=== PATIENT | male | born 1930 | race Caucasian/White ===

== ENCOUNTER 2016-02-19 18:48 | Observation (INO) | payer MEDICARE ==
--- NOTE | 2016-02-19 19:08 | EDPRACDOC ---
<Bianca Meeks - Last Filed: 02/19/16 20:50> - General Information Information Source: Customer Service Clerk - History of Present Illness Onset: today HPI: PT BROUGHT BY EMS FROM HOME FOR AMS AND BLOOD IN URINE CATHETER. Pt cannot answer clearly to questions. Degree of change or sign/sx are unknown. There is growth of some organism in the catheter line. Symptoms Currently: Reports: Still Present Prehospital: Reports: Customer Service Clerk <Juaquin Santiago - Last Filed: 02/20/16 04:08> - General Information Chief Complaint: Altered Mental Status Stated Complaint: AMS,UTI Time Seen by Provider: 02/19/16 19:01 Home Medications: Home Medications Aspirin (OrangeEnteric Coated) [Ecotrin] 325 mg PO DAILY 12/16/13 Acetaminophen Ex Str Tablet [TYLENOL EXTRA STRENGTH Tablet] 500 mg PO QID Cyanocobalamin (Vitamin B-12) [Vitamin B-12 (cyanocobalamin)] 2,000 mcg SL DAILY 05/15/15 Ferrous Sulfate [Iron] 325 mg PO DAILY 05/15/15 Furosemide [Lasix] 40 mg PO DAILY 05/15/15 Tamsulosin HCl [Flomax] 0.4 mg PO QHS 05/15/15 POTASSIUM CHLORIDE Tablet [K-DUR 20 mEq Tablet*] 40 meq PO DAILY@1200 #60 tab.er.prt 05/18/15 Multivitamin [One Daily] 1 tab PO DAILY 06/06/15 Levothyroxine [Synthroid, Levoxyl] 100 mcg PO DAILY 12/04/15 Lactobacillus Combination No.4 [Probiotic] 1 cap PO DAILY #30 capsule 12/09/15 Hydrocodone Bit/Acetaminophen [[place] 5-325 Tablet] 1 tab PO Q6H PRN 02/19/16 Allergies/Adverse Reactions: Allergies Allergy/AdvReac Type Severity Reaction Status Date / Time codeine Allergy Nausea/Vomi Verified 08/07/15 18:23 ting oxycodone HCl [From Tylox] Allergy Facial Verified 08/07/15 18:23 Flusing - Treatment Prior to ED Arrival Reported Medications/Treatment [employer] [facility] Treatment BLS <Bianca Meeks - Last Filed: 02/19/16 20:50> - Treatment Prior to ED Arrival Reported Medications/Treatment [employer] [facility] Treatment BLS <Juaquin Santiago - Last Filed: 02/20/16 04:08> ED Past Medical History - History Reviewed Yes Nurses notes reviewed and agree except as marked - Patient Medical History Cardiac History: Reports: Atrial Fibrillation (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 EF 50-55% June 2013.), Heart Attack, Cardiac Catheterization (2012), CABG, Hypercholesterolemia Respiratory History: Reports: COPD (patient denies). Denies: Pneumonia GI/ History: Reports: Renal Disease (Mild renal insufficiency in the past), Urinary Tract Infection, Ulcer Musculoskeletal History: Reports: Arthritis, Osteoarthritis Psychological History: Denies: Depression, Substance Use Disorder Systemic History: Reports: Anemia, Hypothyroidism. Denies: Cancer Surgical History: Reports: Cholecystectomy, CABG, Cardiac Catheterization (2012) , Hernia Surgery, Tonsillectomy/Adnoidectomy - Family Medical History Reports: Hypertension (brother, mother, father), Diabetes (father), Cancer ( brother), Cardiac Disorders (mother father) - Social Medical History Smoking Status: Current status unknown Social History: Denies: Substance Use Disorder <Juaquin Santiago - Last Filed: 02/20/16 04:08> EDM Review of Systems - Review of Systems ROS Negative Except as Marked: Yes All systems reviewed and were negative except as marked Genitourinary: Other (growth in cath tube) <Juaquin Santiago - Last Filed: 02/20/16 04:08> - Physical Exam Last recorded Vital Signs: Last Vital Signs Temp 98.3 F 02/19/16 18:57 Pulse 89 02/19/16 18:57 Resp 18 02/19/16 18:57 BP 133/74 02/19/16 18:57 Pulse Ox 92 02/19/16 18:57 Oxygen Pulse Oxygen Saturation 92 O2 Device Oxygen Flow Rate Fraction of Inspired Oxygen ( FIO2) <Bianca Meeks - Last Filed: 02/19/16 20:50> - Physical Exam Constitutional: Alert Oriented to: Person, Place Last recorded Vital Signs: Last Vital Signs Temp 98.3 F 02/19/16 18:57 Pulse 89 02/19/16 18:57 Resp 18 02/19/16 18:57 BP 133/74 02/19/16 18:57 Pulse Ox 92 02/19/16 18:57 Oxygen Pulse Oxygen Saturation 92 O2 Device Oxygen Flow Rate Fraction of Inspired Oxygen ( FIO2) - HEENT Head: Normal Eye Exam: negative: Conjunctival Injection, Scleral Icterus Oropharynx: negative: Drooling Nose: No Symptoms Reported Neck: Normal - Respiratory/Cardiovascular Respiratory: Normal - CTA Cardiovascular: Systolic murmur - GI Tenderness: Non tender - Musculoskeletal Extremities: Normal - Integumentary Skin: Normal, Dry <Juaquin Santiago - Last Filed: 02/20/16 04:08> - Results 02/19/16 19:30 02/19/16 19:30 WBC 7.3 xk/uL (3.8-10.8) 02/19/16 19:30 RBC 3.81 xM/uL (4.70-6.10) L 02/19/16 19:30 Hgb 12.3 g/dL (14.0-18.0) L 02/19/16 19:30 Hct 37.0 % (42-52) L 02/19/16 19:30 MCV 97 fL (80-94) H 02/19/16 19:30 MCH 32.2 pg (27-32) H 02/19/16 19:30 MCHC 33.2 g/dl (33-36) 02/19/16 19:30 RDW 16.5 % (11.5-14.5) H 02/19/16 19:30 Plt Count 191 xk/uL (130-400) 02/19/16 19:30 MPV 6.8 fL (7.4-10.4) L 02/19/16 19:30 Neut % (Auto) 77.7 % (45-76) H 02/19/16 19:30 Lymph % (Auto) 14.3 % (17-44) L 02/19/16 19:30 [place]k % (Auto) 4.5 % (3-10) 02/19/16 19:30 Eos % (Auto) 2.9 % (0-5) 02/19/16 19:30 Baso % (Auto) 0.6 % (0-2) 02/19/16 19:30 Absolute Neuts (auto) 5.62 xk/uL (1.7-8.2) 02/19/16 19:30 Absolute Lymphs (auto) 1.02 xk/uL (0.65-4.75) 02/19/16 19:30 PT 11.7 SEC (9.2-11.2) H 02/19/16 19:30 INR 1.1 02/19/16 19:30 APTT 25.6 SEC (22-35) 02/19/16 19:30 Sodium 148 mEq/L (137-146) H 02/19/16 19:30 Potassium 3.2 mEq/L (3.5-5.1) L 02/19/16 19:30 Chloride 110 mEq/L (98-107) H 02/19/16 19:30 Carbon Dioxide 24 mMOL/L (22-33) 02/19/16 19:30 Anion Gap 17 mEq/L (8-16) H 02/19/16 19:30 BUN 19 MG/DL (9-20) 02/19/16 19:30 Creatinine 0.80 MG/DL (0.66-1.25) 02/19/16 19:30 Estimated GFR (MDRD) > 60 mL/min (>=60) 02/19/16 19:30 Glucose 107 MG/DL (70-99) H 02/19/16 19:30 Calculated Osmolality 286 MOs/Kg (270-290) 02/19/16 19:30 Lactic Acid 1.3 mEq/L (0.7-2.1) 02/19/16 19:30 Calcium 8.8 MG/DL (8.4-10.2) 02/19/16 19:30 Corrected Calcium 9.3 MG/DL (8.4-10.2) 02/19/16 19:30 Total Bilirubin 2.1 MG/DL (0.2-1.3) H 02/19/16 19:30 AST 25 IU/L (17-59) 02/19/16 19:30 ALT 23 IU/L (21-72) 02/19/16 19:30 Alkaline Phosphatase 95 IU/L (50-160) 02/19/16 19:30 Troponin I 0.03 ng/mL (<.04) 02/19/16 19:30 Total Protein 7.3 G/DL (6.3-8.2) 02/19/16 19:30 Albumin 3.5 G/DL (3.5-5.0) 02/19/16 19:30 Urine Color Maria T 02/19/16 19:55 Urine Clarity Cldy 02/19/16 19:55 Urine pH 8.0 (5.0-8.0) 02/19/16 19:55 Ur Specific [place] 1.005 (1.003-1.035) 02/19/16 19:55 Urine Protein 3+ (NEG/TRACE) H 02/19/16 19:55 Urine Glucose (UA) Neg (NEGATIVE) 02/19/16 19:55 Urine Ketones 2+ (NEGATIVE) H 02/19/16 19:55 Urine Occult Blood 3+ (NEG/TRACE) H 02/19/16 19:55 Urine Nitrite Pos (NEGATIVE) H 02/19/16 19:55 Urine Bilirubin Neg (NEGATIVE) 02/19/16 19:55 Urine Urobilinogen 2 MG/DL (0-1) H 02/19/16 19:55 Ur Leukocyte Esterase 2+ (NEGATIVE) H 02/19/16 19:55 Urine RBC Tntc (0-2) H 02/19/16 19:55 Urine WBC Tntc (0-2) H 02/19/16 19:55 Urine WBC Clumps Present (NONE) H 02/19/16 19:55 Urine Bacteria 4+ (NEG/FEW) H 02/19/16 19:55 Lab Results 02/19/16 02/19/16 02/19/16 19:55 19:30 19:30 WBC RBC Hgb Hct MCV MCH MCHC RDW Plt Count MPV Neut % (Auto) Lymph % (Auto) [place] % (Auto) Eos % (Auto) Baso % (Auto) Absolute Neuts (auto) Absolute Lymphs (auto) PT 11.7 H INR 1.1 APTT 25.6 Sodium Potassium Chloride Carbon Dioxide Anion Gap BUN Creatinine Estimated GFR (MDRD) Glucose Calculated Osmolality Lactic Acid 1.3 Calcium Corrected Calcium Total Bilirubin AST ALT Alkaline Phosphatase Troponin I Total Protein Albumin Urine Color Maria T Urine Clarity Cldy Urine pH 8.0 Ur Specific [place] 1.005 Urine Protein 3+ H Urine Glucose (UA) Neg Urine Ketones 2+ H Urine Occult Blood 3+ H Urine Nitrite Pos H Urine Bilirubin Neg Urine Urobilinogen 2 H Ur Leukocyte Esterase 2+ H Urine RBC Tntc H Urine WBC Tntc H Urine WBC Clumps Present H Urine Bacteria 4+ H 02/19/16 02/19/16 19:30 19:30 WBC 7.3 RBC 3.81 L Hgb 12.3 L Hct 37.0 L MCV 97 H MCH 32.2 H MCHC 33.2 RDW 16.5 H Plt Count 191 MPV 6.8 L Neut % (Auto) 77.7 H Lymph % (Auto) 14.3 L [place] % (Auto) 4.5 Eos % (Auto) 2.9 Baso % (Auto) 0.6 Absolute Neuts (auto) 5.62 Absolute Lymphs (auto) 1.02 PT INR APTT Sodium 148 H Potassium 3.2 L Chloride 110 H Carbon Dioxide 24 Anion Gap 17 H BUN 19 Creatinine 0.80 Estimated GFR (MDRD) > 60 Glucose 107 H Calculated Osmolality 286 Lactic Acid Calcium 8.8 Corrected Calcium 9.3 Total Bilirubin 2.1 H AST 25 ALT 23 Alkaline Phosphatase 95 Troponin I 0.03 Total Protein 7.3 Albumin 3.5 Urine Color Urine Clarity Urine pH Ur Specific [place] Urine Protein Urine Glucose (UA) Urine Ketones Urine Occult Blood Urine Nitrite Urine Bilirubin Urine Urobilinogen Ur Leukocyte Esterase Urine RBC Urine WBC Urine WBC Clumps Urine Bacteria <Bianca Meeks - Last Filed: 02/19/16 20:50> - Results 02/20/16 02:20 02/20/16 02:20 - EKG EKG #1 EKG Time: 19:30 -: Yes EKG interpreted by me Rate: bpm: 84 Rhythm: Afib ST: Nonsp Comparison: 12/04/15 (no significant change) - Diagnostic Imaging Chest Image interpreted by: Radiologist EXAM: PORTABLE CHEST 1 VIEW COMPARISON: Chest radiograph performed 01/05/2016 FINDINGS: The lungs are mildly hypoexpanded. Mild vascular congestion is noted. Mild right midlung opacity could reflect mild pneumonia. No pleural effusion or pneumothorax is seen. The cardiomediastinal silhouette is borderline normal in size. The patient is status post median sternotomy. No acute osseous abnormalities are identified. IMPRESSION: Lungs mildly hypoexpanded. Mild vascular congestion noted. Mild right midlung opacity could reflect mild pneumonia. Electronically Signed By: Prakash Ventura M.D. On: 02/19/2016 19:44 <Juaquin Santiago - Last Filed: 02/20/16 04:08> - Departure Yes I personally saw and evaluated the patient. Education/Counseling Given To: Patient Education/Counseling Given Regarding: Diagnosis, Treatment Decision to Admit Time: 20:51 Decision to admit date: 02/19/16 Decision to admit: from ED - Physician Consulted Hospitalist Provider Called: Leila Diamond <Bianca Meeks - Last Filed: 02/19/16 20:50> - Departure Disposition: Admit IP To This Hospital <Juaquin Santiago - Last Filed: 02/20/16 04:08> - Departure Condition: Stable Final Diagnosis: UTI (urinary tract infection) Qualifiers: Urinary tract infection type: catheter-associated UTI Indwelling urinary catheter type: indwelling urethral catheter Encounter type: initial encounter Qualified Code(s): T83.511A - Infection and inflammatory reaction due to indwelling urethral catheter, initial encounter; N39.0 - Urinary tract infection , site not specified Sepsis Qualifiers: Sepsis type: sepsis due to unspecified organism Qualified Code(s): A41.9 - Sepsis, unspecified organism Pneumonia Qualifiers: Pneumonia type: due to unspecified organism Laterality: right Lung location: unspecified part of lung Qualified Code(s): J18.9 - Pneumonia, unspecified organism
[2016-02-19] MEDS ORDERED: NS 1,000 ML IV ONE (19:28)
[2016-02-19 19:41] LABS: AUTOMATED BASOPHIL 0.6 % (0-2); AUTOMATED EOSINOPHIL 2.9 % (0-5); AUTOMATED LYMPH 14.3 % (17-44); AUTOMATED MONOCYTE 4.5 % (3-10); AUTOMATED NEUTROPHIL 77.7 % (45-76); MPV 6.8 fL (7.4-10.4)
--- NOTE | 2016-02-19 19:46 | DIRPT ---
CLINICAL DATA: Acute onset of altered mental status and hematuria. Initial encounter. EXAM: PORTABLE CHEST 1 VIEW COMPARISON: Chest radiograph performed 01/05/2016 FINDINGS: The lungs are mildly hypoexpanded. Mild vascular congestion is noted. Mild right midlung opacity could reflect mild pneumonia. No pleural effusion or pneumothorax is seen. The cardiomediastinal silhouette is borderline normal in size. The patient is status post median sternotomy. No acute osseous abnormalities are identified. IMPRESSION: Lungs mildly hypoexpanded. Mild vascular congestion noted. Mild right midlung opacity could reflect mild pneumonia. Electronically Signed By: Prakash Ventura M.D. On: 02/19/2016 19:44
[2016-02-19 19:54] LABS: BLOOD UREA NITROGEN 19 MG/DL (9-20); CALC CORRECTED 9.3 MG/DL (8.4-10.2); CALCIUM 8.8 MG/DL (8.4-10.2); CALCULATED OSMOLALITY 286 MOs/Kg (270-290); CHLORIDE 110 mEq/L (98-107); GLUCOSE 107 MG/DL (70-99); PARTIAL THROMB. TIME 25.6 SEC (22-35); PT-INR 1.1; SODIUM LEVEL 148 mEq/L (137-146); TOTAL PROTEIN 7.3 G/DL (6.3-8.2)
[2016-02-19 20:37] LABS: LEUKOCYTES/URINE 2+ (NEGATIVE); RBC/URINE TNTC (0-2); URINE OCCULT BLOOD 3+ (NEG/TRACE); WBC/URINE TNTC (0-2)
[2016-02-19 20:40] LABS: NITRITE/URINE POS (NEGATIVE)
[2016-02-19] MEDS ORDERED: Levofloxacin 750 mg/150 ml D5W 750 MG/150 ML RTU IV ONE (20:44)
[2016-02-19] MEDS ORDERED: Aluminum;Magnesium;Simethicone 30 ML UDC PO PRN (21:59)
[2016-02-19] MEDS ORDERED: PROMETHAZINE 25 MG/ML VIAL IV PRN (21:59)
[2016-02-19] MEDS ORDERED: SODIUM CHLORIDE 0.9% 3 ML FLUSH FLUSH PRN (21:59)
[2016-02-19] MEDS ORDERED: ACETAMINOPHEN 325 MG/TAB TABLET PO PRN (21:59)
[2016-02-19] MEDS ORDERED: ACETAMINOPHEN 650 MG SUPP PR PRN (21:59)
[2016-02-19] MEDS ORDERED: MAGNESIUM HYDROXIDE 30 ML BOTTLE PO PRN (21:59)
[2016-02-19] MEDS ORDERED: Vancomycin HCl 0 MG in D5W 500 ML IV SCH (22:00)
--- NOTE | 2016-02-19 22:08 | HISTPHYS ---
- History of Present Illness PT BROUGHT BY EMS FROM HOME FOR AMS AND BLOOD IN URINE CATHETER. Pt cannot answer clearly to questions. Degree of change or sign/sx are unknown. There is growth of some organism in the catheter line. 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 He has an indwelling Richard catheter that when it was evaluated by nursing staff was found to have something that appeared to be mold be on the inside of it. There was some kind of organism growing on the catheter. 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 He has routinely refused home health and she is having great difficulty trying to get the catheter changed in other things the last time his catheter was changed was the beginning of January 2016. She and her daughter are trying to meet the patient's wishes however at this point a reassessment of his needs may need to occur. 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 EF 50-55% June 2013.), Heart Attack, Cardiac Catheterization (2012), CABG, Hypercholesterolemia Respiratory History: Reports: COPD (patient denies). Denies: Pneumonia GI/ History: Reports: Renal Disease (Mild renal insufficiency in the past), Urinary Tract Infection, Ulcer Musculoskeletal History: Reports: Arthritis, Osteoarthritis Systemic History: Reports: Anemia, Hypothyroidism. Denies: Cancer Psychological History: Denies: Depression, Substance Use Disorder - Surgical History Reports: Cholecystectomy, CABG, Cardiac Catheterization (2012), Hernia Surgery, Tonsillectomy/Adnoidectomy - Medictions/Allergies Allergies codeine Allergy (Verified 08/07/15 18:23) Nausea/Vomiting oxycodone HCl [From Tylox] Allergy (Verified 08/07/15 18:23) Facial Flusing Current Medication List: Reviewed Home Medications Aspirin (OrangeEnteric Coated) [Ecotrin] 325 mg PO DAILY 12/16/13 Acetaminophen Ex Str Tablet [TYLENOL EXTRA STRENGTH Tablet] 500 mg PO QID Cyanocobalamin (Vitamin B-12) [Vitamin B-12 (cyanocobalamin)] 2,000 mcg SL DAILY 05/15/15 Ferrous Sulfate [Iron] 325 mg PO DAILY 05/15/15 Furosemide [Lasix] 40 mg PO DAILY 05/15/15 Tamsulosin HCl [Flomax] 0.4 mg PO QHS 05/15/15 POTASSIUM CHLORIDE Tablet [K-DUR 20 mEq Tablet*] 40 meq PO DAILY@1200 #60 tab.er.prt 05/18/15 Multivitamin [One Daily] 1 tab PO DAILY 06/06/15 Levothyroxine [Synthroid, Levoxyl] 100 mcg PO DAILY 12/04/15 Omeprazole [Prilosec] 20 mg PO DAILY 12/04/15 Amoxicillin [Amoxil] 500 mg PO TID #20 capsule 12/09/15 LIDOCAINE 5% Patch [Lidoderm 5% Patch] 3 pat TOP DAILY #30 patch 12/09/15 Lactobacillus Combination No.4 [Probiotic] 1 cap PO DAILY #30 capsule 12/09/15 Trimethoprim-Sulfamethoxazole [Septra DS] 2 tab PO BID #30 tablet 12/09/15 Hydrocodone Bit/Acetaminophen [[place] 5-325 Tablet] 1 tab PO Q6H PRN 02/19/16 Unobtainable 0 mg PO .SEE COMMENTS 02/19/16 - Family History Reports: Hypertension (brother, mother, father), Diabetes (father), Cancer ( brother), Cardiac Disorders (mother father) - Social History Travel Outside of [place] in the Last 3 Months?: No Lives: with Spouse Smoking Status: Never smoker Social History: Denies: Alcohol Use, Substance Use Disorder - Review of Systems Constitutional: No Symptoms Reported (No Fever, chills, wt loss/gain, diaphoresis,fatigue/malaise.) Eyes: No Symptoms Reported (No blurry vision, visual changes, eye pain, or eye redness.) Ears: No Symptoms Reported (No ear pain or discharge) Nose: No Symptoms Reported (No nasal discharge/congestion or bleeding) Mouth: No Symptoms Reported (No oropharyngeal lesions or erythema) Throat/Neck: No Symptoms Reported (No throat pain or swelling.No oropharyngeal lesions or erythema.) Respiratory: No Symptoms Reported (No cough, wheezing, or shortness of breath.) Cardiovascular: No Symptoms Reported (No chest pain or palpitations.) Gastrointestinal: No Symptoms Reported (No abdominal pain, nausea, vomiting, diarrhea, constipation, or bloody stool.) Genitourinary: No Symptoms Reported (No dysuria or hematuria.) Neurological: Speech Difficulty, Mood Changes, Memory Changes, Changes in Orientation Musculoskeletal:: No Symptoms Reported Integumentary: No Symptoms Reported (no rashes or lesions) Allergic/Immunologic: No Symptoms Reported (no rashes or lesions) Hematologic: No Symptoms Reported (No chronic anemia, bleeding, or easy bruising.), Other (Lymphatics- no lymph node swelling or pain.) Endocrine: No Symptoms Reported Psychiatric: No Symptoms Reported (Fully oriented, with normal and appropriate affect.) - Physical Exam Vital Signs: Initial Vitals Temperature 98.3 F 02/19/16 18:57 Pulse Rate 89 02/19/16 18:57 Respiratory Rate 18 02/19/16 18:57 Blood Pressure 133/74 02/19/16 18:57 Pulse Oxygen Saturation 92 02/19/16 18:57 Constitutional: Agitated, Confused, Writhing Oriented to: Time, Person, Place - HEENT Head: Normal (normocephalic, atraumatic.), Other (No cervical lymphadenopathy. No supraclavicular lymphadenopathy. Neck: No palpable mass, supple , trachea midline.) Eye: Normal (pupils equal, reactive to light, and round; EOMI, Sclera white) ENT EAC: Normal (No oropharyngeal lesions or erythema. Mucous membranes are dry. ) TMJ: Normal Nose: No Symptoms Reported (septum midline, Nares patent, without discharge or bleeding.) Respiratory: Normal - CTA (Clear to auscultation bilaterally. No wheezing, rales , rhonchi. Chest wall movements are symmetric. No use of accessory muscles to breathe.) Cardiovascular: Normal (RRR , Normal S1, S2. No murmurs, rubs, or gallops. PMI non-displaced. Carotids: no carotid bruits. No bradycardia or tachycardia. DP pulses 2+ bilaterally.) - GI Auscultation: Normal (normal active sounds) Palpation: Normal (Soft,non distended,nontender. No hepatosplenomegaly.) Tenderness: Non tender (No rebound or guarding) Crook's Sign: Negative - Musculoskeletal Back: Normal (Non-Tender) Extremities: Normal (Normal tone, DP pulses 2+ bilaterally, No cyanosis or edema bilaterally, FROM bilaterally.) - Integumentary Skin: Normal (Clean, dry, and intact. No rashes. No lesions.) Lymphatics: Normal (No cervical lymphadenopathy. No supraclavicular lymphadenopathy.) - Neurologic Memory Impaired: Short-term, Long-term Motor Function: Abnormal Cranial Nerve: 4, Unable to Test Cerebellar: Unable to Test Mood Description: Normal, Anxious, Agitated Thought: Delusions. negative: Coherent Perception: Normal - Focused CV Perfusion Exam Vital Signs: Last Vital Signs Temp 98.3 F 02/19/16 18:57 Pulse 89 02/19/16 18:57 Resp 18 02/19/16 18:57 BP 133/74 02/19/16 18:57 Pulse Ox 92 02/19/16 18:57 - Lab Results Laboratory Results - last 24 hr 02/19/16 02/19/16 02/19/16 19:30 19:30 19:30 WBC 7.3 RBC 3.81 L Hgb 12.3 L Hct 37.0 L MCV 97 H MCH 32.2 H MCHC 33.2 RDW 16.5 H Plt Count 191 MPV 6.8 L Neut % (Auto) 77.7 H Lymph % (Auto) 14.3 L [place] % (Auto) 4.5 Eos % (Auto) 2.9 Baso % (Auto) 0.6 Absolute Neuts (auto) 5.62 Absolute Lymphs (auto) 1.02 PT 11.7 H INR 1.1 APTT 25.6 Sodium 148 H Potassium 3.2 L Chloride 110 H Carbon Dioxide 24 Anion Gap 17 H BUN 19 Creatinine 0.80 Estimated GFR (MDRD) > 60 Glucose 107 H Calculated Osmolality 286 Lactic Acid Calcium 8.8 Corrected Calcium 9.3 Total Bilirubin 2.1 H AST 25 ALT 23 Alkaline Phosphatase 95 Troponin I 0.03 Total Protein 7.3 Albumin 3.5 Urine Color Urine Clarity Urine pH Ur Specific [place] Urine Protein Urine Glucose (UA) Urine Ketones Urine Occult Blood Urine Nitrite Urine Bilirubin Urine Urobilinogen Ur Leukocyte Esterase Urine RBC Urine WBC Urine WBC Clumps Urine Bacteria 02/19/16 02/19/16 19:30 19:55 WBC RBC Hgb Hct MCV MCH MCHC RDW Plt Count MPV Neut % (Auto) Lymph % (Auto) [place] % (Auto) Eos % (Auto) Baso % (Auto) Absolute Neuts (auto) Absolute Lymphs (auto) PT INR APTT Sodium Potassium Chloride Carbon Dioxide Anion Gap BUN Creatinine Estimated GFR (MDRD) Glucose Calculated Osmolality Lactic Acid 1.3 Calcium Corrected Calcium Total Bilirubin AST ALT Alkaline Phosphatase Troponin I Total Protein Albumin Urine Color Maria T Urine Clarity Cldy Urine pH 8.0 Ur Specific [place] 1.005 Urine Protein 3+ H Urine Glucose (UA) Neg Urine Ketones 2+ H Urine Occult Blood 3+ H Urine Nitrite Pos H Urine Bilirubin Neg Urine Urobilinogen 2 H Ur Leukocyte Esterase 2+ H Urine RBC Tntc H Urine WBC Tntc H Urine WBC Clumps Present H Urine Bacteria 4+ H - Diagnostic Findings PORTABLE CHEST 1 VIEW COMPARISON: Chest radiograph performed 01/05/2016 FINDINGS: The lungs are mildly hypoexpanded. Mild vascular congestion is noted. Mild right midlung opacity could reflect mild pneumonia. No pleural effusion or pneumothorax is seen. The cardiomediastinal silhouette is borderline normal in size. The patient is status post median sternotomy. No acute osseous abnormalities are identified. IMPRESSION: Lungs mildly hypoexpanded. Mild vascular congestion noted. Mild right midlung opacity could reflect mild pneumonia. Electronically Signed By: Prakash Ventura M.D. On: 02/19/2016 19:44 - Assessment (1) Acute metabolic encephalopathy G93.41 - METABOLIC ENCEPHALOPATHY Acute Present on Admission: Yes states that at baseline patient is alert awake. Currently he is agitated, confused and not making any sense. (2) UTI (urinary tract infection) N39.0 - URINARY TRACT INFECTION, SITE NOT SPECIFIED Acute Qualifiers: Urinary tract infection type: catheter-associated UTI Indwelling urinary catheter type: indwelling urethral catheter Encounter type: initial encounter Qualified Code(s): T83.511A - Infection and inflammatory reaction due to indwelling urethral catheter, initial encounter; N39.0 - Urinary tract infection , site not specified Likely urinary tract infection given condition of the catheter. Await further evaluation and management. Continue with vancomycin and cefepime. (3) Pneumonia J18.9 - PNEUMONIA, UNSPECIFIED ORGANISM Suspected Qualifiers: Pneumonia type: due to unspecified organism Laterality: right Lung location: middle lobe of lung Qualified Code(s): J18.1 - Lobar pneumonia, unspecified organism Patient started on cefepime and vancomycin. I highly doubt pneumonia given his presentation and catheter issues. Will recheck chest x-ray in 24-48 hours to re -evaluate. At this point he is on vancomycin and cefepime and should cover him. (4) Hypokalemia E87.6 - HYPOKALEMIA Acute Present on Admission: Yes Replete IV and p.o. (5) Physical debility R53.81 - OTHER MALAISE Chronic Assist with ADLs and with transfers, continue falls and safety precautions. PT/OT to evaluate patient. Patient is nonambulatory and will need intensive physical therapy. (6) Dehydration E86.0 - DEHYDRATION Acute Present on Admission: Yes IV fluids and monitor labs and blood pressures (7) Adult failure to thrive R62.7 - ADULT FAILURE TO THRIVE Acute Present on Admission: Yes Patient last weight 107 lb. - Plan Admit, assistance with all ADLs, IV antibiotics for urinary tract infection. Patient on strong broad-spectrum antibiotics which should cover pneumonia as well if that is present. Case Care Discussed with: Patient, Family, Nursing Staff Total Time: 65 minutes Critical Care: No Couseling Time (>50% in counseling/coordination): No
[2016-02-19] MEDS ORDERED: Vaccine Screening Complete SCH (23:00)
[2016-02-19] MEDS: ENOXAPARIN 40 MG/0.4 ML PFS SQ SCH (23:02)
[2016-02-19] MEDS: NS 1,000 ML IV SCH (23:02)
[2016-02-19] MEDS: CEFEPIME HYDROCHLORIDE 1 GM in D5W 100 ML IV SCH (23:02)
[2016-02-20] MEDS: NS 1,000 ML IV SCH ×5 (03:04→23:48)
[2016-02-20 03:33] LABS: AUTOMATED BASOPHIL 0.3 % (0-2); AUTOMATED EOSINOPHIL 2.9 % (0-5); AUTOMATED LYMPH 17.6 % (17-44); AUTOMATED MONOCYTE 5.2 % (3-10); MPV 7.2 fL (7.4-10.4)
[2016-02-20 03:38] LABS: BLOOD UREA NITROGEN 20 MG/DL (9-20); CALC CORRECTED 9.5 MG/DL (8.4-10.2); CALCIUM 8.6 MG/DL (8.4-10.2); CALCULATED OSMOLALITY 285 MOs/Kg (270-290); CHLORIDE 109 mEq/L (98-107); GLUCOSE 122 MG/DL (70-99); SODIUM LEVEL 146 mEq/L (137-146); TOTAL PROTEIN 6.4 G/DL (6.3-8.2)
[2016-02-20] MEDS: SODIUM CHLORIDE 0.9% 3 ML FLUSH FLUSH SCH ×2 (04:38→17:48)
[2016-02-20] MEDS ORDERED: LACTOBACILLUS COMBINATION NO 4 PO SCH (09:00)
[2016-02-20] MEDS ORDERED: Non-Formulary Medication ITEM (Multivitamin [One Daily] 1 TAB) PO SCH (09:00)
[2016-02-20] MEDS ORDERED: Non-Formulary Medication ITEM (Cyanocobalamin (Vitamin B-12) [Vitamin B-12 (Cyanocobalam SL SCH (09:00)
[2016-02-20] MEDS ORDERED: FUROSEMIDE 80 MG TAB PO SCH (09:00)
[2016-02-20] MEDS ORDERED: Non-Formulary Medication ITEM (Ferrous Sulfate [Iron] 325 MG) PO SCH (09:00)
[2016-02-20] MEDS: FUROSEMIDE 40 MG TAB PO SCH (10:28)
[2016-02-20] MEDS: CEFEPIME HYDROCHLORIDE 1 GM in D5W 100 ML IV SCH (10:28)
[2016-02-20] MEDS: LEVOTHYROXINE 100 MCG (0.1 MG) TAB PO SCH (10:29)
[2016-02-20] MEDS: Aspirin (Orange Enteric Coated) 325 mg tab PO SCH (10:30)
[2016-02-20] MEDS: FERROUS SULFATE 324 MG TAB PO SCH (10:30)
[2016-02-20] MEDS: CYANOCOBALAMIN (Vitamin B-12) 500 MCG TABLET PO SCH (15:42)
[2016-02-20] MEDS: POTASSIUM CHLORIDE 20 MEQ TAB PO SCH (15:42)
[2016-02-20] MEDS: VITAMINS, MULTIPLE CAP PO SCH (15:42)
[2016-02-20] MEDS: PROBIOTIC BLEND TAB PO SCH (15:42)
[2016-02-20] MEDS ORDERED: Albuterol/Ipratropium Neb 3 ML NEB NEB PRN (17:32)
--- NOTE | 2016-02-20 17:32 | GENMEDPROG ---
Subjective Note: Patient in bed responsive, confused and disoriented. Follows simple commands. Tolerating dysphagia diet. Denies any pains. Notes Reviewed: Yes Events from last night noted and discussed with Clinical Staff Current Medication List: Reviewed Currently: Reports: Cough, CHAIREZ, Reflux Sx DVT Prophylaxis: Yes - Physical Examination Vital Signs and I&O: Last Vital Signs Temp 97.5 F 02/20/16 14:04 Pulse 79 02/20/16 14:04 Resp 18 02/20/16 14:04 BP 134/69 02/20/16 14:04 Pulse Ox 92 02/20/16 14:04 Oxygen Pulse Oxygen Saturation 92 O2 Device Room Air Oxygen Flow Rate Fraction of Inspired Oxygen ( FIO2) Intake & Output 02/17/16 02/18/16 02/19/16 02/20/16 23:59 23:59 23:59 23:59 Intake Total 400 2878 Output Total 2125 Balance 400 753 Patient's weight 47.712 kg 47.854 kg General: Alert, Cooperative, No acute distress, Weakness, Fatigue HEENT: Normal, PERRLA, EOMI, Anicteric Sclera Neck: Non-tender, Normal inspection, Limited range of motion Lymphatics: Normal Respiratory: Normal - CTA, Diminished, Rhonchi Cardiovascular: Regular rate, Normal S1, Normal S2, Murmurs GI: Normal bowel sounds, Soft, Non tender, No hepatospenomegaly, No masses Extremities/Musculoskeletal: Edema, Strength Skin: Warm,Dry and Intact, No rashes, No breakdown, No significant lesion Neurological: Normal speech, Normal tone, Cranial nerves 3-12 NL Psych/Mental Status: Confused, Disoriented, Drowsy Lab/DI/Studies Reviewed: Allergies codeine Allergy (Verified 08/07/15 18:23) Nausea/Vomiting oxycodone HCl [From Tylox] Allergy (Verified 08/07/15 18:23) Facial Flusing 02/20/16 02:20 02/20/16 02:20 Last Vital Signs Temp 97.5 F 02/20/16 14:04 Pulse 79 02/20/16 14:04 Resp 18 02/20/16 14:04 BP 134/69 02/20/16 14:04 Pulse Ox 92 02/20/16 14:04 Abnormal Lab Results 02/19/16 02/19/16 02/19/16 19:30 19:30 19:30 RBC 3.81 L Hgb 12.3 L Hct 37.0 L MCV 97 H MCH 32.2 H RDW 16.5 H MPV 6.8 L Neut % (Auto) 77.7 H Lymph % (Auto) 14.3 L PT 11.7 H Sodium 148 H Potassium 3.2 L Chloride 110 H Anion Gap 17 H Glucose 107 H Total Bilirubin 2.1 H Albumin TSH Urine Protein Urine Ketones Urine Occult Blood Urine Nitrite Urine Urobilinogen Ur Leukocyte Esterase Urine RBC Urine WBC Urine WBC Clumps Urine Bacteria 02/19/16 02/19/16 02/20/16 19:55 22:50 02:20 RBC Hgb Hct MCV MCH RDW MPV Neut % (Auto) Lymph % (Auto) PT Sodium Potassium Chloride 109 H Anion Gap Glucose 122 H Total Bilirubin 1.8 H Albumin 3.1 L TSH 0.26 L Urine Protein 3+ H Urine Ketones 2+ H Urine Occult Blood 3+ H Urine Nitrite Pos H Urine Urobilinogen 2 H Ur Leukocyte Esterase 2+ H Urine RBC Tntc H Urine WBC Tntc H Urine WBC Clumps Present H Urine Bacteria 4+ H 02/20/16 02:20 RBC 3.52 L Hgb 11.4 L Hct 34.7 L MCV 99 H MCH 32.5 H RDW 16.5 H MPV 7.2 L Neut % (Auto) Lymph % (Auto) PT Sodium Potassium Chloride Anion Gap Glucose Total Bilirubin Albumin TSH Urine Protein Urine Ketones Urine Occult Blood Urine Nitrite Urine Urobilinogen Ur Leukocyte Esterase Urine RBC Urine WBC Urine WBC Clumps Urine Bacteria - Assessment (1) Acute metabolic encephalopathy Acute G93.41 - METABOLIC ENCEPHALOPATHY Comment/Plan: Continue maximal supportive care minimize sedation avoid any anticholinergics.. (2) UTI (urinary tract infection) Acute N39.0 - URINARY TRACT INFECTION, SITE NOT SPECIFIED Qualifiers: Urinary tract infection type: catheter-associated UTI Indwelling urinary catheter type: indwelling urethral catheter Encounter type: initial encounter Qualified Code(s): T83.511A - Infection and inflammatory reaction due to indwelling urethral catheter, initial encounter; N39.0 - Urinary tract infection , site not specified Comment/Plan: Continue broad-spectrum antibiotics await urine cultures (3) Pneumonia Suspected J18.9 - PNEUMONIA, UNSPECIFIED ORGANISM Qualifiers: Pneumonia type: due to unspecified organism Laterality: right Lung location: middle lobe of lung Qualified Code(s): J18.1 - Lobar pneumonia, unspecified organism Comment/Plan: Continue antibiotics supplemental O2 nebulized bronchodilators and aggressive pulmonary toileting. (4) Dehydration Acute E86.0 - DEHYDRATION Comment/Plan: Continue IV fluids (5) Dysphagia Acute R13.10 - DYSPHAGIA, UNSPECIFIED Qualifiers: Dysphagia type: oropharyngeal phase Qualified Code(s): R13.12 - Dysphagia, oropharyngeal phase Comment/Plan: Continue aspiration precautions and special diet (6) Physical debility Chronic R53.81 - OTHER MALAISE Comment/Plan: Assist with ADLs and with transfers continue falls and safety precautions (7) Urinary retention Acute R33.9 - RETENTION OF URINE, UNSPECIFIED Comment/Plan: Continue Richard catheter Case Care Discussed with: Patient, Nursing Staff, Respiratory Therapy, Aoc Plans Intelligence Officer Chief Education/Counseling Given To: Patient Education/Counseling Given Regarding: Diagnosis, Treatment, Prognosis, Follow Up Total Time: 45 min . Code: 02836 (12+)
[2016-02-20] MEDS: HYDROCODONE 5 MG/ACETAMIN 325 MG TAB PO PRN (17:48)
[2016-02-20] MEDS: ENOXAPARIN 40 MG/0.4 ML PFS SQ SCH (22:33)
[2016-02-20] MEDS: TAMSULOSIN HCL 0.4 MG CAP PO SCH (22:33)
[2016-02-20] MEDS: Albuterol/Ipratropium Neb 3 ML NEB NEB SCH (23:51)
[2016-02-21] MEDS: NS 1,000 ML IV SCH (03:49)
[2016-02-21] MEDS: SODIUM CHLORIDE 0.9% 3 ML FLUSH FLUSH SCH ×2 (06:16→17:34)
[2016-02-21 07:37] LABS: BLOOD UREA NITROGEN 16 MG/DL (9-20); CALCIUM 8.4 MG/DL (8.4-10.2); CALCULATED OSMOLALITY 280 MOs/Kg (270-290); CHLORIDE 111 mEq/L (98-107); GLUCOSE 107 MG/DL (70-99); SODIUM LEVEL 145 mEq/L (137-146)
[2016-02-21] MEDS: Albuterol/Ipratropium Neb 3 ML NEB NEB SCH ×3 (07:59→23:51)
[2016-02-21] MEDS: FUROSEMIDE 40 MG TAB PO SCH (10:42)
[2016-02-21] MEDS: Aspirin (Orange Enteric Coated) 325 mg tab PO SCH (10:42)
[2016-02-21] MEDS: CEFEPIME HYDROCHLORIDE 1 GM in D5W 100 ML IV SCH (10:42)
[2016-02-21] MEDS: CYANOCOBALAMIN (Vitamin B-12) 500 MCG TABLET PO SCH (10:42)
[2016-02-21] MEDS: FERROUS SULFATE 324 MG TAB PO SCH (10:42)
[2016-02-21] MEDS: LEVOTHYROXINE 100 MCG (0.1 MG) TAB PO SCH (10:42)
[2016-02-21] MEDS: PROBIOTIC BLEND TAB PO SCH (10:42)
[2016-02-21] MEDS: POTASSIUM CHLORIDE 20 MEQ TAB PO SCH (10:42)
[2016-02-21] MEDS: VITAMINS, MULTIPLE CAP PO SCH (10:43)
--- NOTE | 2016-02-21 15:38 | GENMEDPROG ---
Subjective Note: Patient in chair responsive and more interactive today. Oriented and follows commands. Denies any pains. Breathing fair. P.o. intake improving. Notes Reviewed: Yes Events from last night noted and discussed with Clinical Staff Current Medication List: Reviewed Currently: Reports: Cough, CHAIREZ, SOB, Reflux Sx DVT Prophylaxis: Yes - Physical Examination Vital Signs and I&O: Last Vital Signs Temp 97 F L 02/21/16 14:01 Pulse 68 02/21/16 14:01 Resp 18 02/21/16 14:01 BP 90/60 L 02/21/16 14:01 Pulse Ox 94 02/21/16 14:01 Oxygen Pulse Oxygen Saturation 94 O2 Device Room Air Oxygen Flow Rate Fraction of Inspired Oxygen ( FIO2) Intake & Output 02/18/16 02/19/16 02/20/16 02/21/16 23:59 23:59 23:59 23:59 Intake Total 400 3106 1155 Output Total 2725 650 Balance 400 381 505 Patient's weight 47.712 kg 47.854 kg 49.045 kg General: Alert, Cooperative, No acute distress, Weakness, Fatigue HEENT: Normal, PERRLA, EOMI, Anicteric Sclera Neck: Non-tender, Normal inspection, Limited range of motion Lymphatics: Normal Respiratory: Normal - CTA, Diminished, Rhonchi Cardiovascular: Regular rate, Normal S1, Normal S2, Murmurs GI: Normal bowel sounds, Soft, Non tender, No hepatospenomegaly, No masses Extremities/Musculoskeletal: Edema, Strength Skin: Warm,Dry and Intact, No rashes, No breakdown, No significant lesion Neurological: Normal speech, Normal tone, Cranial nerves 3-12 NL Psych/Mental Status: Confused, Disoriented, Drowsy Lab/DI/Studies Reviewed: Allergies codeine Allergy (Verified 08/07/15 18:23) Nausea/Vomiting oxycodone HCl [From Tylox] Allergy (Verified 08/07/15 18:23) Facial Flusing Last Vital Signs Temp 97 F L 02/21/16 14:01 Pulse 68 02/21/16 14:01 Resp 18 02/21/16 14:01 BP 90/60 L 02/21/16 14:01 Pulse Ox 94 02/21/16 14:01 02/20/16 02:20 02/21/16 07:07 - Assessment (1) Acute metabolic encephalopathy Acute G93.41 - METABOLIC ENCEPHALOPATHY Comment/Plan: Continue maximal supportive care minimize sedation avoid any anticholinergics.. Mentation slowly improving. (2) UTI (urinary tract infection) Acute N39.0 - URINARY TRACT INFECTION, SITE NOT SPECIFIED Qualifiers: Urinary tract infection type: catheter-associated UTI Indwelling urinary catheter type: indwelling urethral catheter Encounter type: initial encounter Qualified Code(s): T83.511A - Infection and inflammatory reaction due to indwelling urethral catheter, initial encounter; N39.0 - Urinary tract infection , site not specified Comment/Plan: Continue broad-spectrum antibiotics await urine cultures; preliminary report shows gram-negative rods (3) Pneumonia Suspected J18.9 - PNEUMONIA, UNSPECIFIED ORGANISM Qualifiers: Pneumonia type: due to unspecified organism Laterality: right Lung location: middle lobe of lung Qualified Code(s): J18.1 - Lobar pneumonia, unspecified organism Comment/Plan: Continue antibiotics supplemental O2 nebulized bronchodilators and aggressive pulmonary toileting. 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 - OTHER MALAISE Comment/Plan: Assist with ADLs and with transfers continue falls and safety precautions (7) Urinary retention Acute R33.9 - RETENTION OF URINE, UNSPECIFIED Comment/Plan: Continue Richard catheter (8) Hypokalemia Acute E87.6 - HYPOKALEMIA Comment/Plan: Replace and monitor (9) Dehydration Acute E86.0 - DEHYDRATION Comment/Plan: Continue IV fluids and monitor labs and blood pressures Case Care Discussed with: Patient, Nursing Staff, Resource Management, Vegetable Loader Education/Counseling Given To: Patient Education/Counseling Given Regarding: Diagnosis, Treatment, Prognosis, Follow Up Total Time: 45 min . Critical Care: No Code: 40600 (12+)
[2016-02-21] MEDS: NS/KCl 20 mEq 1,000 ML IV SCH (17:33)
[2016-02-21] MEDS: ENOXAPARIN 40 MG/0.4 ML PFS SQ SCH (17:34)
[2016-02-21] MEDS: TAMSULOSIN HCL 0.4 MG CAP PO SCH (20:35)
[2016-02-21] MEDS: HYDROCODONE 5 MG/ACETAMIN 325 MG TAB PO PRN (20:36)
[2016-02-22] MEDS: NS/KCl 20 mEq 1,000 ML IV SCH ×3 (05:12→18:58)
[2016-02-22] MEDS: SODIUM CHLORIDE 0.9% 3 ML FLUSH FLUSH SCH ×2 (05:13→18:59)
[2016-02-22] MEDS: Albuterol/Ipratropium Neb 3 ML NEB NEB SCH ×3 (07:47→23:34)
[2016-02-22] MEDS: Aspirin (Orange Enteric Coated) 325 mg tab PO SCH (08:31)
[2016-02-22] MEDS: LEVOTHYROXINE 100 MCG (0.1 MG) TAB PO SCH (08:31)
[2016-02-22] MEDS: FUROSEMIDE 40 MG TAB PO SCH (08:31)
[2016-02-22] MEDS: CEFEPIME HYDROCHLORIDE 1 GM in D5W 100 ML IV SCH (08:35)
[2016-02-22] MEDS: FERROUS SULFATE 324 MG TAB PO SCH (11:41)
[2016-02-22] MEDS: CYANOCOBALAMIN (Vitamin B-12) 500 MCG TABLET PO SCH (11:41)
[2016-02-22] MEDS: PROBIOTIC BLEND TAB PO SCH (11:41)
[2016-02-22] MEDS: VITAMINS, MULTIPLE CAP PO SCH (11:41)
[2016-02-22] MEDS: POTASSIUM CHLORIDE 20 MEQ TAB PO SCH (11:41)
[2016-02-22] MEDS: CEFTRIAXONE 1 GM in D5W 100 ML IV SCH (14:31)
[2016-02-22] MEDS ORDERED: VARIBAR THIN 40% BARIUM 250 ML ONE (14:42)
--- NOTE | 2016-02-22 17:12 | GENMEDPROG ---
Subjective Note: Patient in bed responsive follows commands. More interactive today. Denies any pains. Chronically ill and cachectic appearing. Notes Reviewed: Yes Events from last night noted and discussed with Clinical Staff Current Medication List: Reviewed Currently: Reports: Cough, CHAIREZ, SOB, Reflux Sx DVT Prophylaxis: Yes - Physical Examination Vital Signs and I&O: Last Vital Signs Temp 98.1 F 02/21/16 21:56 Pulse 87 02/22/16 07:48 Resp 20 02/22/16 07:48 BP 113/63 02/21/16 21:56 Pulse Ox 94 02/22/16 07:48 Oxygen Pulse Oxygen Saturation 94 O2 Device Room Air Oxygen Flow Rate Fraction of Inspired Oxygen ( FIO2) Intake & Output 02/19/16 02/20/16 02/21/16 02/22/16 23:59 23:59 23:59 23:59 Intake Total 400 3106 1425 1830 Output Total 2725 1600 850 Balance 400 381 -175 980 Patient's weight 47.712 kg 47.854 kg 49.045 kg 49.527 kg General: Alert, Cooperative, No acute distress, Weakness, Fatigue HEENT: Normal, PERRLA, EOMI, Anicteric Sclera Neck: Non-tender, Normal inspection, Limited range of motion Lymphatics: Normal Respiratory: Normal - CTA, Diminished, Rhonchi Cardiovascular: Regular rate, Normal S1, Normal S2, Murmurs GI: Normal bowel sounds, Soft, Non tender, No hepatospenomegaly, No masses Extremities/Musculoskeletal: Edema, Strength Skin: Warm,Dry and Intact, No rashes, No breakdown, No significant lesion Neurological: Normal speech, Normal tone, Cranial nerves 3-12 NL Psych/Mental Status: Confabulating Lab/DI/Studies Reviewed: Microbiology 02/19/16 19:55 Urine - Richard Catheter Urine Culture - Final Providencia stuartii 02/20/16 02:20 02/21/16 07:07 - Assessment (1) Acute metabolic encephalopathy Acute G93.41 - METABOLIC ENCEPHALOPATHY Comment/Plan: Continue maximal supportive care minimize sedation avoid any anticholinergics.. Mentation slowly improving. (2) UTI (urinary tract infection) Acute N39.0 - URINARY TRACT INFECTION, SITE NOT SPECIFIED Qualifiers: Urinary tract infection type: catheter-associated UTI Indwelling urinary catheter type: indwelling urethral catheter Encounter type: initial encounter Qualified Code(s): T83.511A - Infection and inflammatory reaction due to indwelling urethral catheter, initial encounter; N39.0 - Urinary tract infection , site not specified Comment/Plan: Continue broad-spectrum antibiotics , urine culture growing Providencia-will adjust antibiotics according (3) Pneumonia Suspected J18.9 - PNEUMONIA, UNSPECIFIED ORGANISM Qualifiers: Pneumonia type: due to unspecified organism Laterality: right Lung location: middle lobe of lung Qualified Code(s): J18.1 - Lobar pneumonia, unspecified organism Comment/Plan: Continue antibiotics supplemental O2 nebulized bronchodilators and aggressive pulmonary toileting. 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 - OTHER MALAISE Comment/Plan: Assist with ADLs and with transfers continue falls and safety precautions (7) Urinary retention Acute R33.9 - RETENTION OF URINE, UNSPECIFIED Comment/Plan: Continue Richard catheter (8) Hypokalemia Acute E87.6 - HYPOKALEMIA Comment/Plan: Replace and monitor (9) Dehydration Acute E86.0 - DEHYDRATION Comment/Plan: Continue IV fluids and monitor labs and blood pressures Case Care Discussed with: Patient, Nursing Staff, Flask Carrier Education/Counseling Given To: Patient Education/Counseling Given Regarding: Diagnosis, Treatment, Prognosis, Follow Up Total Time: 45 min . Critical Care: No Code: 79529 (12+)
[2016-02-22] MEDS: ENOXAPARIN 40 MG/0.4 ML PFS SQ SCH (18:58)
[2016-02-22] MEDS ORDERED: ENSURE PUDDING CHOCOLATE 5 OZ PO ONE (21:36)
[2016-02-22] MEDS: IBUPROFEN 400 MG TAB PO PRN (21:47)
[2016-02-22] MEDS: TAMSULOSIN HCL 0.4 MG CAP PO SCH (21:48)
[2016-02-23] MEDS: SODIUM CHLORIDE 0.9% 3 ML FLUSH FLUSH SCH ×2 (05:13→18:07)
[2016-02-23] MEDS: NS/KCl 20 mEq 1,000 ML IV SCH ×4 (05:13→20:41)
[2016-02-23] MEDS: Albuterol/Ipratropium Neb 3 ML NEB NEB SCH ×3 (07:52→23:10)
[2016-02-23] MEDS: LEVOTHYROXINE 100 MCG (0.1 MG) TAB PO SCH (09:24)
[2016-02-23] MEDS: Aspirin (Orange Enteric Coated) 325 mg tab PO SCH (09:24)
[2016-02-23] MEDS: FUROSEMIDE 40 MG TAB PO SCH (09:24)
[2016-02-23] MEDS: POTASSIUM CHLORIDE 20 MEQ TAB PO SCH (12:27)
[2016-02-23] MEDS: CYANOCOBALAMIN (Vitamin B-12) 500 MCG TABLET PO SCH (12:27)
[2016-02-23] MEDS: PROBIOTIC BLEND TAB PO SCH (12:27)
[2016-02-23] MEDS: FERROUS SULFATE 324 MG TAB PO SCH (12:27)
[2016-02-23] MEDS: VITAMINS, MULTIPLE CAP PO SCH (12:27)
--- NOTE | 2016-02-23 12:39 | GENMEDPROG ---
Chief Complaint: UTI, debility Subjective Note: Resting comfortably. Hard of hearing. No acute complaints. Notes Reviewed: Yes Events from last night noted and discussed with Clinical Staff Current Medication List: Reviewed Currently: Reports: Cough, CHAIREZ, SOB, Reflux Sx DVT Prophylaxis: Yes - Physical Examination Vital Signs and I&O: Last Vital Signs Temp 98.0 F 02/23/16 05:40 Pulse 88 02/23/16 05:40 Resp 20 02/23/16 05:40 BP 108/65 02/23/16 05:40 Pulse Ox 95 02/23/16 07:49 Oxygen Pulse Oxygen Saturation 95 O2 Device Room Air Oxygen Flow Rate Fraction of Inspired Oxygen ( FIO2) Intake & Output 02/21/16 02/22/16 02/23/16 02/24/16 06:59 06:59 06:59 06:59 Intake Total 2891 1319 2327 180 Output Total 307 1600 2450 Balance -184 -281 -123 180 Patient's weight 49.045 kg 49.527 kg 49.697 kg General: Alert, Cooperative, No acute distress, Weakness, Fatigue HEENT: Normal, PERRLA, EOMI, Anicteric Sclera Neck: Non-tender, Normal inspection, Limited range of motion Lymphatics: Normal Respiratory: Normal - CTA, Diminished, Rhonchi Cardiovascular: Regular rate, Normal S1, Normal S2, Murmurs GI: Normal bowel sounds, Soft, Non tender, No hepatospenomegaly, No masses Extremities/Musculoskeletal: Edema, Strength Skin: Warm,Dry and Intact, No rashes, No breakdown, No significant lesion Neurological: Normal speech, Normal tone, Cranial nerves 3-12 NL Psych/Mental Status: Disoriented Lab/DI/Studies Reviewed: Laboratory Tests 02/20/16 02/21/16 02:20 07:07 Potassium 3.5 3.1 L Creatinine 0.80 - Assessment (1) UTI (urinary tract infection) Acute N39.0 - URINARY TRACT INFECTION, SITE NOT SPECIFIED Qualifiers: Urinary tract infection type: catheter-associated UTI Indwelling urinary catheter type: indwelling urethral catheter Encounter type: initial encounter Qualified Code(s): T83.511A - Infection and inflammatory reaction due to indwelling urethral catheter, initial encounter; N39.0 - Urinary tract infection , site not specified Comment/Plan: Continue broad-spectrum antibiotics , urine culture growing Providencia-will adjust antibiotics according (2) Acute metabolic encephalopathy Acute G93.41 - METABOLIC ENCEPHALOPATHY Comment/Plan: Continue maximal supportive care minimize sedation avoid any anticholinergics.. Mentation slowly improving. (3) Adult failure to thrive Acute R62.7 - ADULT FAILURE TO THRIVE Comment/Plan: Patient last weight 107 lb. (4) Dysphagia Acute R13.10 - DYSPHAGIA, UNSPECIFIED Qualifiers: Dysphagia type: oropharyngeal phase Qualified Code(s): R13.12 - Dysphagia, oropharyngeal phase Comment/Plan: Continue aspiration precautions and special diet (5) Sepsis Acute A41.9 - SEPSIS, UNSPECIFIED ORGANISM Qualifiers: Sepsis type: sepsis due to unspecified organism Qualified Code(s): A41.9 - Sepsis, unspecified organism - Plan Overall improving, antibiotics can be changed oral at the time of discharge. He will be discharging to subacute nursing facility once placement is found. He will be medically ready for discharge in 24 hours.
[2016-02-23] MEDS: CEFTRIAXONE 1 GM in D5W 100 ML IV SCH (14:08)
[2016-02-23] MEDS: IBUPROFEN 400 MG TAB PO PRN (16:46)
[2016-02-23] MEDS: ENOXAPARIN 40 MG/0.4 ML PFS SQ SCH (18:04)
[2016-02-23] MEDS: TAMSULOSIN HCL 0.4 MG CAP PO SCH (20:41)
[2016-02-24] MEDS: NS/KCl 20 mEq 1,000 ML IV SCH ×4 (00:10→16:42)
[2016-02-24] MEDS: HYDROCODONE 5 MG/ACETAMIN 325 MG TAB PO PRN (00:43)
[2016-02-24] MEDS: SODIUM CHLORIDE 0.9% 3 ML FLUSH FLUSH SCH ×2 (05:54→16:42)
[2016-02-24] MEDS: Albuterol/Ipratropium Neb 3 ML NEB NEB SCH ×2 (07:47→15:23)
[2016-02-24] MEDS: FUROSEMIDE 40 MG TAB PO SCH (08:25)
[2016-02-24] MEDS: LEVOTHYROXINE 100 MCG (0.1 MG) TAB PO SCH (08:25)
[2016-02-24] MEDS: Aspirin (Orange Enteric Coated) 325 mg tab PO SCH (08:25)
[2016-02-24] MEDS: CYANOCOBALAMIN (Vitamin B-12) 500 MCG TABLET PO SCH (11:09)
[2016-02-24] MEDS: FERROUS SULFATE 324 MG TAB PO SCH (11:09)
[2016-02-24] MEDS: POTASSIUM CHLORIDE 20 MEQ TAB PO SCH (11:09)
[2016-02-24] MEDS: VITAMINS, MULTIPLE CAP PO SCH (11:09)
[2016-02-24] MEDS: PROBIOTIC BLEND TAB PO SCH (11:09)
[2016-02-24] MEDS: CEFTRIAXONE 1 GM in D5W 100 ML IV SCH (13:18)
--- NOTE | 2016-02-24 15:16 | GENMEDPROG ---
Chief Complaint: UTI, weakness Subjective Note: Doing well patient resting comfortably has no complaints. Notes Reviewed: Yes Events from last night noted and discussed with Clinical Staff Current Medication List: Reviewed Currently: Reports: Cough, CHAIREZ, SOB, Reflux Sx DVT Prophylaxis: Yes - Physical Examination Vital Signs and I&O: Last Vital Signs Temp 98 F 02/24/16 05:35 Pulse 81 02/24/16 05:35 Resp 18 02/24/16 05:35 BP 104/65 02/24/16 05:35 Pulse Ox 94 02/24/16 05:35 Oxygen Pulse Oxygen Saturation 94 O2 Device Room Air Oxygen Flow Rate Fraction of Inspired Oxygen ( FIO2) Intake & Output 02/22/16 02/23/16 02/24/16 02/25/16 06:59 06:59 06:59 06:59 Intake Total 1319 2327 3096 1190 Output Total 1600 2450 1770 600 Balance -281 -123 1326 590 Patient's weight 49.527 kg 49.697 kg 50.916 kg General: Alert, Cooperative, No acute distress, Weakness, Fatigue HEENT: Normal, PERRLA, EOMI, Anicteric Sclera Neck: Non-tender, Normal inspection, Limited range of motion Lymphatics: Normal Respiratory: Normal - CTA, Diminished, Rhonchi Cardiovascular: Regular rate, Normal S1, Normal S2, Murmurs GI: Normal bowel sounds, Soft, Non tender, No hepatospenomegaly, No masses Extremities/Musculoskeletal: Edema, Strength Skin: Warm,Dry and Intact, No rashes, No breakdown, No significant lesion Neurological: Normal speech, Normal tone, Cranial nerves 3-12 NL Psych/Mental Status: Disoriented Lab/DI/Studies Reviewed: Laboratory Tests 02/20/16 02/21/16 02:20 07:07 Potassium 3.5 3.1 L BUN 16 Creatinine 0.80 - Assessment (1) UTI (urinary tract infection) Acute N39.0 - URINARY TRACT INFECTION, SITE NOT SPECIFIED Qualifiers: Urinary tract infection type: catheter-associated UTI Hematuria presence: H Indwelling urinary catheter type: indwelling urethral catheter Encounter type: initial encounter Qualified Code(s): T83.511A - Infection and inflammatory reaction due to indwelling urethral catheter, initial encounter; N39.0 - Urinary tract infection, site not specified Comment/Plan: Continue broad-spectrum antibiotics , urine culture growing Providencia-will adjust antibiotics according (2) Acute metabolic encephalopathy Acute G93.41 - METABOLIC ENCEPHALOPATHY Comment/Plan: Continue maximal supportive care minimize sedation avoid any anticholinergics.. Mentation slowly improving. (3) Adult failure to thrive Acute R62.7 - ADULT FAILURE TO THRIVE Comment/Plan: Patient last weight 107 lb. (4) Dysphagia Acute R13.10 - DYSPHAGIA, UNSPECIFIED Qualifiers: Dysphagia type: oropharyngeal phase Qualified Code(s): R13.12 - Dysphagia, oropharyngeal phase Comment/Plan: Continue aspiration precautions and special diet (5) Sepsis Acute A41.9 - SEPSIS, UNSPECIFIED ORGANISM Qualifiers: Sepsis type: sepsis due to unspecified organism Qualified Code(s): A41.9 - Sepsis, unspecified organism - Plan Patient doing well ready for discharge. Await placement. Total Time: 40
[2016-02-24] MEDS: ENOXAPARIN 40 MG/0.4 ML PFS SQ SCH (16:41)
[2016-02-24] MEDS: TAMSULOSIN HCL 0.4 MG CAP PO SCH (21:40)
[2016-02-25] MEDS: Albuterol/Ipratropium Neb 3 ML NEB NEB SCH ×4 (01:05→23:45)
[2016-02-25] MEDS: NS/KCl 20 mEq 1,000 ML IV SCH ×4 (05:34→16:36)
[2016-02-25] MEDS: SODIUM CHLORIDE 0.9% 3 ML FLUSH FLUSH SCH ×2 (05:35→16:09)
[2016-02-25] MEDS: Aspirin (Orange Enteric Coated) 325 mg tab PO SCH (08:14)
[2016-02-25] MEDS: LEVOTHYROXINE 100 MCG (0.1 MG) TAB PO SCH (08:15)
[2016-02-25] MEDS: FUROSEMIDE 40 MG TAB PO SCH (08:15)
--- NOTE | 2016-02-25 11:08 | GENMEDPROG ---
Chief Complaint: UTI, dementia Subjective Note: Resting comfortably, sleeping on my arrival. Has no complaints. Currently: Reports: Cough, CHAIREZ, SOB, Reflux Sx DVT Prophylaxis: Yes - Physical Examination Vital Signs and I&O: Last Vital Signs Temp 98.1 F 02/25/16 05:10 Pulse 75 02/25/16 05:10 Resp 18 02/25/16 05:10 BP 111/69 02/25/16 05:10 Pulse Ox 93 02/25/16 05:10 Oxygen Pulse Oxygen Saturation 93 O2 Device Room Air Oxygen Flow Rate Fraction of Inspired Oxygen ( FIO2) Intake & Output 02/23/16 02/24/16 02/25/16 02/26/16 06:59 06:59 06:59 06:59 Intake Total 2327 3096 3085 810 Output Total 2450 1770 3800 950 Balance -123 1326 -245 -140 Patient's weight 49.697 kg 50.916 kg 50.604 kg General: Alert, Cooperative, No acute distress, Weakness, Fatigue HEENT: Normal, PERRLA, EOMI, Anicteric Sclera Neck: Non-tender, Normal inspection, Limited range of motion Lymphatics: Normal Respiratory: Normal - CTA, Diminished, Rhonchi Cardiovascular: Regular rate, Normal S1, Normal S2, Murmurs GI: Normal bowel sounds, Soft, Non tender, No hepatospenomegaly, No masses Extremities/Musculoskeletal: Edema, Strength Skin: Warm,Dry and Intact, No rashes, No breakdown, No significant lesion Neurological: Normal speech, Normal tone, Cranial nerves 3-12 NL Psych/Mental Status: Disoriented - Assessment (1) UTI (urinary tract infection) Acute N39.0 - URINARY TRACT INFECTION, SITE NOT SPECIFIED Qualifiers: Urinary tract infection type: catheter-associated UTI Hematuria presence: H Indwelling urinary catheter type: indwelling urethral catheter Encounter type: initial encounter Qualified Code(s): T83.511A - Infection and inflammatory reaction due to indwelling urethral catheter, initial encounter; N39.0 - Urinary tract infection, site not specified Comment/Plan: Continue broad-spectrum antibiotics , urine culture growing Providencia-will adjust antibiotics according (2) Acute metabolic encephalopathy Acute G93.41 - METABOLIC ENCEPHALOPATHY Comment/Plan: Continue maximal supportive care minimize sedation avoid any anticholinergics.. Mentation slowly improving. (3) Adult failure to thrive Acute R62.7 - ADULT FAILURE TO THRIVE Comment/Plan: Patient last weight 107 lb. (4) Dysphagia Acute R13.10 - DYSPHAGIA, UNSPECIFIED Qualifiers: Dysphagia type: oropharyngeal phase Qualified Code(s): R13.12 - Dysphagia, oropharyngeal phase Comment/Plan: Continue aspiration precautions and special diet (5) Sepsis Acute A41.9 - SEPSIS, UNSPECIFIED ORGANISM Qualifiers: Sepsis type: sepsis due to unspecified organism Qualified Code(s): A41.9 - Sepsis, unspecified organism - Plan Awaiting insurance approval for subacute nursing facility. Continue present care in the meantime.
[2016-02-25] MEDS: CYANOCOBALAMIN (Vitamin B-12) 500 MCG TABLET PO SCH (11:09)
[2016-02-25] MEDS: VITAMINS, MULTIPLE CAP PO SCH (11:09)
[2016-02-25] MEDS: POTASSIUM CHLORIDE 20 MEQ TAB PO SCH (11:09)
[2016-02-25] MEDS: FERROUS SULFATE 324 MG TAB PO SCH (11:09)
[2016-02-25] MEDS: PROBIOTIC BLEND TAB PO SCH (11:09)
[2016-02-25] MEDS: CEFTRIAXONE 1 GM in D5W 100 ML IV SCH (13:14)
[2016-02-25 15:27] VITALS: BMI 17.4
[2016-02-25] MEDS: ENOXAPARIN 40 MG/0.4 ML PFS SQ SCH (16:48)
[2016-02-25] MEDS: TAMSULOSIN HCL 0.4 MG CAP PO SCH (21:06)
[2016-02-26] MEDS: NS/KCl 20 mEq 1,000 ML IV SCH ×2 (03:40→15:41)
[2016-02-26] MEDS: SODIUM CHLORIDE 0.9% 3 ML FLUSH FLUSH SCH (03:41)
[2016-02-26] MEDS: LEVOTHYROXINE 100 MCG (0.1 MG) TAB PO SCH (08:54)
[2016-02-26] MEDS: FUROSEMIDE 40 MG TAB PO SCH (08:54)
[2016-02-26] MEDS: Aspirin (Orange Enteric Coated) 325 mg tab PO SCH (08:54)
[2016-02-26] MEDS: Albuterol/Ipratropium Neb 3 ML NEB NEB SCH ×2 (09:04→15:47)
[2016-02-26] MEDS: POTASSIUM CHLORIDE 20 MEQ TAB PO SCH (10:55)
[2016-02-26] MEDS: FERROUS SULFATE 324 MG TAB PO SCH (10:55)
[2016-02-26] MEDS: PROBIOTIC BLEND TAB PO SCH (10:56)
[2016-02-26] MEDS: VITAMINS, MULTIPLE CAP PO SCH (10:56)
[2016-02-26] MEDS: CYANOCOBALAMIN (Vitamin B-12) 500 MCG TABLET PO SCH (10:56)
[2016-02-26 13:06] VITALS: TEMP 97.8
[2016-02-26] MEDS: CEFTRIAXONE 1 GM in D5W 100 ML IV SCH (13:16)
--- NOTE | 2016-02-26 15:23 | PCM.DCS92 ---
- Final/Secondary Discharge Diagnosis (1) UTI (urinary tract infection) Acute N39.0 - URINARY TRACT INFECTION, SITE NOT SPECIFIED catheter-associated UTI H indwelling urethral catheter initial encounter T83.511A - Infection and inflammatory reaction due to indwelling urethral catheter, initial encounter; N39.0 - Urinary tract infection, site not specified Comment: Continue broad-spectrum antibiotics , urine culture growing Providencia -will adjust antibiotics accordingly. He has completed a 7 day course of antibiotics. No more antibiotics necessary at discharge. (2) Acute metabolic encephalopathy Acute G93.41 - METABOLIC ENCEPHALOPATHY Present on Admission: Yes Comment: Continue maximal supportive care minimize sedation avoid any anticholinergics.. Mentation has improved back to baseline. (3) Adult failure to thrive Acute R62.7 - ADULT FAILURE TO THRIVE Present on Admission: Yes Comment: Patient last weight 107 lb. (4) Dysphagia Acute R13.10 - DYSPHAGIA, UNSPECIFIED oropharyngeal phase R13.12 - Dysphagia, oropharyngeal phase Comment: Continue aspiration precautions and special diet (5) Sepsis Acute A41.9 - SEPSIS, UNSPECIFIED ORGANISM sepsis due to unspecified organism A41.9 - Sepsis, unspecified organism Discharge Disposition: [facility] Facility Discharge Condition: Improved Cognitive Discharge Status: Unimpaired Fuctional Discharge Status: Walker Assistance Physician Follow up/Referrals: None,No Provider [Family Provider] - One Week Home Medications / New Prescriptions: New Levofloxacin [Levaquin] 250 mg PO DAILY #5 tab Continue Aspirin (OrangeEnteric Coated) [Ecotrin] 325 mg PO DAILY Cyanocobalamin (Vitamin B-12) [Vitamin B-12 (cyanocobalamin)] 2,000 mcg SL DAILY Ferrous Sulfate [Iron] 325 mg PO DAILY Acetaminophen Ex Str Tablet [TYLENOL EXTRA STRENGTH Tablet] 500 mg PO QID Tamsulosin HCl [Flomax] 0.4 mg PO QHS Furosemide [Lasix] 40 mg PO DAILY POTASSIUM CHLORIDE Tablet [K-DUR 20 mEq Tablet*] 40 meq PO DAILY@1200 #60 tab.er.prt Multivitamin [One Daily] 1 tab PO DAILY Levothyroxine [Synthroid, Levoxyl] 100 mcg PO DAILY Lactobacillus Combination No.4 [Probiotic] 1 cap PO DAILY #30 capsule Hydrocodone Bit/Acetaminophen [[place] 5-325 Tablet] 1 tab PO Q6H PRN #30 tablet PRN Reason: Pain O2 Device: Room Air Diet at Discharge: As Tolerated Activity: No Restrictions - DC Summary Notes HPI/Notes: This is a pleasant 85-year-old 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 He was treated for urinary tract infection as mentioned above, his mentation improved. He was seen by physical therapy recommended subacute nursing facility. He is discharging today to subacute nursing facility. Hospital Course Note:: Discharge summary on patient named KIANNA EMERY admitted to [facility] on 02/19/16 by Leila Diamond MD. Date of discharge is []. Total Time: 35 - Physical Exam Vital Signs: Last Vital Signs Temp 97.8 F 02/26/16 06:01 Pulse 110 02/26/16 06:01 Resp 20 02/26/16 06:01 BP 131/80 02/26/16 06:01 Pulse Ox 93 02/26/16 06:01 Oxygen Pulse Oxygen Saturation 93 O2 Device Room Air Oxygen Flow Rate Fraction of Inspired Oxygen ( FIO2) Constitutional: Alert Oriented to: Person, Place - HEENT Head: Normal Eye: negative: Conjunctival Injection, Scleral Icterus Oropharynx: negative: Drooling Nose: No Symptoms Reported - Respiratory/Cardiovascular Respiratory: Diminished Cardiovascular: Normal (RRR , Normal S1, S2. No murmurs, rubs, or gallops. PMI non-displaced. Carotids: no carotid bruits. No bradycardia or tachycardia. DP pulses 2+ bilaterally.) - GI Tenderness: Non tender - Musculoskeletal Extremities: Normal - Integumentary Lymphatics: Normal - Neurologic Memory Impaired: Short-term, Long-term Cerebellar: Unable to Test Mood Description: Normal, Anxious, Agitated Thought: Delusions. negative: Coherent Perception: Normal
[2016-02-26 16:21] VITALS: BP 134/79; PULSE 79; TEMP 98.7
== END 2016-02-26 16:40 ==
LOC: ED 18:48 → MPS3 21:59 → INTOOBSV 21:59
PROVIDERS: ADMIT Hospitalist; ATTEND Internal Medicine
DX: T83.511A Infection and inflammatory reaction due to indwelling urethral catheter, initial encounter (principal); A41.9 Sepsis, unspecified organism; N39.0 Urinary tract infection, site not specified; Y84.6 Urinary catheterization as the cause of abnormal reaction of the patient, or of later complication, without mention of misadventure at the time of the procedure; R13.12 Dysphagia, oropharyngeal phase; G93.41 Metabolic encephalopathy; J18.1 Lobar pneumonia, unspecified organism; E87.6 Hypokalemia; E87.0 Hyperosmolality and hypernatremia; R62.7 Adult failure to thrive; J44.9 Chronic obstructive pulmonary disease, unspecified; Z95.1 Presence of aortocoronary bypass graft; E78.00 Pure hypercholesterolemia, unspecified; I11.0 Hypertensive heart disease with heart failure; I50.9 Heart failure, unspecified; Z79.82 Long term (current) use of aspirin; E03.9 Hypothyroidism, unspecified; Z79.899 Other long term (current) drug therapy; R53.81 Other malaise; R33.9 Retention of urine, unspecified
CPT/HCPCS: 36415; 71010; 80048; 80053; 81001; 83605; 84443; 84484; 85025; 85610; 85730; 87040; 87077; 87086; 87186; 92526; 92610; 92611; 93005; 94640; 96365; 96372; 97110; 97162; 97530; 99283; A9270; G0378; J0692; J0696; J1650; J1956; J3370; J7040; J7060; J7070; J7620; J3490